=== PATIENT | female | born 1955 | race Caucasian/White ===

== ENCOUNTER 2021-08-15 16:27 | Emergency (ER) | payer MEDICARE ==
[~2021-08-15] VITALS: Ht 157.5 cm; Wt 86.2 kg
[~2021-08-15 16:27] MED LIST: ALPRAZOLAM ER1 MG PO; AMBIEN 10 MG TA10 MG PO; ASPIRIN EC81 M1 PO; BYSTOLIC10 MG PO; CARVEDILOL25 MG PO; CLONAZEPAM 0.50.5 M1 PO; DOXAZOSIN MESYLA2 MG PO; HYDROCODON-ACE1 EAC5 PO; HYDROCODON-ACE1 EAC8 PO; LEVOTHYROXINE0.05 MG PO; LISINOPRIL20 MG PO; UNITHROID50 MCG PO; XANAX 0.5 MG0.5 MG PO; XANAX XR1 MG PO; ZOLOFT 50 MG TA50 M1 PO; ZYRTEC10 M2 PO
[2021-08-15 18:31] LABS: ABSOLUTE NEUTROPHILS 4.5 thou/uL (1.4-8.2); BASOPHILS 0.9 % (0.0-2.0); EOSINOPHILS 1.5 % (0.0-3.0); HEMATOCRIT 39.5 % (37.0-47.0); HEMOGLOBIN 12.9 gm/dL (12.0-15.0); LYMPHOCYTES 35.1 % (24.0-44.0); MCH 30.5 pg (26.0-34.0); MCHC 32.5 g/dL (28.0-37.0); MCV 93.7 fL (80.0-100.0); MONOCYTES 5.6 % (1.0-8.0); PLATELET COUNT 174 thou/uL (150-400); POLYS 56.9 % (36.0-66.0); RBC 4.22 mil/uL (4.20-5.00); RDW 13.2 % (10.5-14.5); WBC 7.9 thou/uL (4.0-11.0)
[2021-08-15 18:53] LABS: ANION GAP 9 mmol/L (7-16); BUN 19 mg/dL (7-18); CHLORIDE 100 mmol/L (98-107); CO2 26 mmol/L (21-32); GLUCOSE 101 mg/dL (74-106); POTASSIUM 3.8 mmol/L (3.5-5.1); SODIUM 135 mmol/L (136-145)
[2021-08-15 18:55] LABS: URINE BILIRUBIN NEGATIVE (Negative); URINE BLOOD NEGATIVE (Negative); URINE CLARITY CLEAR; URINE COLOR YELLOW; URINE GLUCOSE-RANDOM* NEGATIVE (Negative); URINE KETONES NEGATIVE (Negative); URINE LEUKOCYTES-REFLEX TRACE (Negative); URINE NITRITE-REFLEX NEGATIVE (Negative); URINE PROTEIN (DIPSTICK) NEGATIVE (Negative); URINE SPECIFIC GRAVITY 1.025 (1.005-1.035); URINE UROBILINOGEN 0.2 E.U./dl (0.2-1.0)
[2021-08-15 18:58] LABS: ALBUMIN 3.3 g/dL (3.4-5.0); SALICYLATE < 2.8 mg/dL (2.8-20.0); SGOT 47 U/L (15-37); SGPT 55 U/L (14-59); TOTAL BILIRUBIN 0.9 mg/dL (0.2-1.0); TOTAL PROTEIN 7.4 g/dL (6.4-8.2)
[2021-08-15 19:10] LABS: AMP/METHAMP Negative (Negative); BARBITURATES Negative (Negative); BENZODIAZEPINES Negative (Negative); COCAINE Negative (Negative); METHADONE Negative (Negative); OPIATES Negative (Negative); PCP Negative (Negative)
[2021-08-16 00:28] VITALS: BP 154/89
--- NOTE | 2021-08-16 08:44 | EKG ---
[address] [address] ELECTROCARDIOGRAM REPORT Name: MIRYAM SOLIS [id number] Admission: 08/15/21 Attend Phys: Discharge: 08/16/21 Date of : 51 Report #: [id number] [facility] ED Test Date: 2021-08-15 Test Time: 18:07:09 Pat Name: MIRYAM SOLIS Department: Room: Gender: F Cooperer: BLOSSOM : 1955 Requested By: Charlee Peguero Order Number: [id number] MD: Roel Waldron Measurements Intervals [place] Rate: 75 P: 45 [place]: 163 QRS: -12 QRSD: 88 T: 31 QT: 421 QTc: 471 Interpretive Statements Sinus rhythm Probable left atrial enlargement Inferior infarct, old Baseline wander in lead(s) V2 Compared to ECG 10/09/2013 22:12:01 Myocardial infarct finding now present ST (T wave) deviation no longer present Electronically Signed On 08-16-2021 8:44:05 WIRE TWISTING MACHINE OPERATOR by Roel Waldron [email or web address] <ELECTRONICALLY SIGNED> By: Roel Waldron MD, [facility] 08/16/21 0844 1807 180 Roel Waldron MD, [facility] /EPI
[2021-08-16] MEDS ORDERED: LEVO-T75 MCG PO (14:37)
[2021-08-16] MEDS ORDERED: TRAMADOL 50 MG50 MG (15:10)
[2021-08-16] MEDS ORDERED: LOPRESSOR50 MG (15:10)
[2021-08-16] MEDS ORDERED: BAYER CHEWABLE81 MG (15:12)
[2021-08-16] MEDS ORDERED: ATORVASTATIN CA20 MG (15:12)
[2021-08-16] MEDS ORDERED: LISINOPRIL2.5 MG (15:13)
[2021-08-16] MEDS ORDERED: PLAVIX 75 MG TA75 MG (15:13)
[2021-08-16] MEDS ORDERED: NICOTINE PATCH1 EAC2 (15:14)
== END 2021-08-16 00:30 ==
LOC: ER 16:27
PROVIDERS: Nurse Practitioner Family; Student in an Organized Health Care Education/Training Program
DX: R41.82 Altered mental status, unspecified (principal); R60.0 Localized edema; I10 Essential (primary) hypertension; J44.9 Chronic obstructive pulmonary disease, unspecified; F41.9 Anxiety disorder, unspecified; F32.9 Major depressive disorder, single episode, unspecified; E03.9 Hypothyroidism, unspecified; F17.210 Nicotine dependence, cigarettes, uncomplicated; Z79.899 Other long term (current) drug therapy; Z98.890 Other specified postprocedural states; Z90.89 Acquired absence of other organs; Z91.040 Latex allergy status; Z88.0 Allergy status to penicillin; Z88.8 Allergy status to other drugs, medicaments and biological substances

== ENCOUNTER 2021-08-16 00:45 | Inpatient (IN) | payer MEDICARE, MEDICAID ==
--- NOTE | 2021-08-16 02:13 | NUR ---
PATIENT IS AMITTED TO THE UNIT TO ROOM 528A. SHE IS ALERT AND ORIENTED TO PLACE. VERBALLY ABUSSIVE AND RESISTANCE TO CARE. SHE DENIES PAINS/SI/AVH/HI. SHE IS CONTINENT OF BOWEL AND BLADDER. AMBULATES AND ABLE TO VERBALISE HER NEEDS. BED IS LOW, LOCKED AND ALARMED. BS ACTIVE AND SHE REFUSES TO ANSWER ASSESSMENT QUESTION. SHE SAID, "I WANT TO TALK TO MY DAUGHTER".SHE REFUES VITAL SIGN TO BE CHECKED AND TOOK OFF THE BP CUFF. SAT AT 97% AT RA. T 97.4, 18, 74. SHE GOT OUT OF HER ROOM AND WENT TO DAY AREA. VERY LOUD AND HYPER VERBAL. [id number] CHECK IS ONGOING.. CALL TO [facility] AND NO MED LIST AVAILABLE AT [facility] TIME SAY TO FOLLOW UP WITH DR MATA AT AM.ORDER FOR CONSULT IN WITH DR CRUZ AND NATALIE UP IN THE UNIT TO VISIT. PATIENT.
[2021-08-16 08:25] VITALS: BP 134/87
[2021-08-16 08:59] VITALS: BP 134/87
[2021-08-16 11:12] LABS: CHOLESTEROL 95 mg/dL (<200); HDL CHOLESTEROL 54 mg/dL (>40); LDL CHOLESTEROL 25 mg/dL (<100); TC:HDL 1.8 Ratio (Not establshd); TRIGLYCERIDE 84 mg/dL (<150); VLDL 17 mg/dL (<40)
[2021-08-16] MEDS ORDERED: LEVO-T75 MCG PO (14:37)
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
[2021-08-16] MEDS ORDERED: TRAMADOL 50 MG50 MG (15:10)
[2021-08-16] MEDS ORDERED: LOPRESSOR50 MG (15:10)
[2021-08-16] MEDS ORDERED: ATORVASTATIN CA20 MG (15:12)
[2021-08-16] MEDS ORDERED: BAYER CHEWABLE81 MG (15:12)
[2021-08-16] MEDS ORDERED: PLAVIX 75 MG TA75 MG (15:13)
[2021-08-16] MEDS ORDERED: LISINOPRIL2.5 MG (15:13)
[2021-08-16] MEDS ORDERED: NICOTINE PATCH1 EAC2 (15:14)
--- NOTE | 2021-08-16 15:58 | NUR ---
Assumed pt care this morning from overnight shift. Pt was in activity area with pleasant expression on her face eating breakfast. Pt presented alert and oriented x3, though did not seen to know year. Pt was having issues with the phone, so staff helped pt use the phone to call daughter and leave messages for daughter and then leave a message for her per pt request. Pt stated that she did not think that she should be in the hospital and that she was uncertain of taking medications in general. Pt education provided about medication administration and listening to providers at this time. It was explained to pt that she did not currently have any medications given that medication reconciliation was still occuring. Pt voiced understanding at this time. Pt denied any depression or anxiety when asked. Pt also denied any hallucinations. Pt denied suicidal or homcidal ideation as well. Pt denied pain at this time, though legs were shown to have +1-2 edema, which pt voiced she had never had prior. Lung sounds clear but diminished. Heart murmur present. Bowel sounds present and active. Last BM today per report. Medication list sent by daughter. Psych medications not entered per order of Dr. Banda as daughter was unsure of when her mother had taken these medications last. Medical medications entered for hospitalist view. Providers respectively aware of this and above information on client. No further concerns.
[2021-08-16 17:29] VITALS: BP 159/100
--- NOTE | 2021-08-16 21:45 | NUR ---
At onset of night custodian pt was sitting in the day room watching TV and reading magazines. Pt had her feet up in a chair to help with her bilateral lower leg pitting edema +1. This shift pt was alert and oriented x3. Pt stated that she was in the hospital because her wanted to get back together with her and he she had a stroke in December that was causing her to "speak a foreign language." Pt complained of depression and anxiety, but stated she will be okay. Pt stated she takes Xanax at home 1mg three times a day. RN called logistics operations director Ector Pepper and received an order for PRN xanax. Pt recieved 1mg at bed time. Pt denied SI, HI and AVH. Pt was compliant with vital signs and medications. Pt was pleasant with staff and peers. Pt is a low fall risk. Will continue to monitor.
[2021-08-17 02:06] LABS: GLYCOHEMOGLOBIN (HGB A1C) 4.9 % (4.8-5.6)
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
[2021-08-17 09:30] VITALS: BP 122/82
--- NOTE | 2021-08-17 11:29 | NUR ---
Alert and orientated X4. Denies SI/HI. Happy and joking this AM. States she has a headache /. Tylenol given, decreased to 7. No s/o distress, participating in group. Currently laying down in room. Breath sounds clear. Reg HR auscultated. Color pink with brisk capillary refill and palpable peripheral pulses. Incontinent of large amt yellow urine per brief. Active bowel sounds over soft, rounded abdomen. States last BM was yesterday. Ambulates with regular, steady gait.
--- NOTE | 2021-08-17 12:04 | NUR ---
New admit to [facility]. PMH COPD, marijuana and tobacco use, CAD s/p [place], Bipolar d/o, dementia. Pt with need for placement, family meeting secheduled. She is on a regular diet with low intakes at bkft and lunch noted but 100% intake at dinner last noc. BMI 36, class II obesity. 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 Meds and labs reviewed. Follow weight and intakes ternds, but consider low nutrition risk.
[2021-08-17 21:06] VITALS: BP 114/62
[2021-08-18 07:46] VITALS: BP 118/84
--- NOTE | 2021-08-18 11:22 | NUR ---
Alert and orientated X4. Calm, cooperative and compliant. Requesting med to help her sleep. Wants xanax to be reordered, states quetiapine is not working. Slept well per report. Denies SI/HI. Breath sounds clear. Reg HR auscultated. Color pink with brisk capillary refill and palpable peripheral pulses. Independent with voiding. Active bowel sounds over soft, rounded abdomen. Ambulates with regular steady gait. Interacting with peers and staff. Calm and cooperative all AM.
[2021-08-18 19:32] VITALS: BP 127/70
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
[2021-08-19 09:12] VITALS: BP 143/104
[2021-08-19 20:00] VITALS: BP 98/70
[2021-08-19 20:22] VITALS: BP 98/70
--- NOTE | 2021-08-19 23:25 | NUR ---
PATIENT HAS BEEN IN ROOM ALL NIGHT. SHE IS SLEEPING AT THIS TIME. SHE HAS WANTED TO BE LEFT ALONE TO SLEEP. PATIENT UP TO THE BATHROOM ON OWN. DENIES SI/HI/AVH. PATIENT A/0X2. DENIES PAIN. TOOK MEDS WHOLE WITH WATER. IRRITABLE WHEN AWAKENED. ROUTINE CHECKS TO ASSESS STATUS AND SAFETY OF PATIENT. CONTINUING TO MONITOR.
[2021-08-20 08:44] VITALS: BP 141/77
--- NOTE | 2021-08-20 12:55 | NUR ---
Assumed pt care this morning from overnight shift. Pt was in activity area resting during this time. Client presented alert and oriented 3x, and was anxious but cooperative at this time. Client took all medications at this time, and tolerated them well. Client denied depression, though did voice anxiety at this time. PRN seroquel given for anxiety after group. Client denied any hallucinations at this time. Client also denied any si/hi presently. Client denied pain at this time, stating that "even if I was in pain, tylenol wouldn't help me- I used to buy tons of it and it didn't help" without specifying any pain. Client lung sounds clear. Bowel sounds active. Last BM 08/19/21. No further concerns at this time.
--- NOTE | 2021-08-20 16:36 | NUR ---
Family meeting - IAIN Ortega and Dr. Bnada. Will explore facilities in [place], [place] for patient. Shannon's email address is
[2021-08-20 17:09] VITALS: BP 157/103
[2021-08-20 18:06] VITALS: BP 145/88
[2021-08-20 19:43] VITALS: BP 145/88
[2021-08-20 19:54] VITALS: BP 137/61
--- NOTE | 2021-08-20 20:48 | NUR ---
PATIENT WAS IN HER ROOM TALKING TO HER DAUGHTER ON THE PHONE AT 1900. SHE REQUESTED TO THIS NURSE AT THIS TIME THAT SHE HAD A HEADACHE AND THAT SHE NEEDED HER SEROQUEL WITH BEDTIME MEDS. AFTER SPEAKING TO HER DAUGHTER, SHE CAME OUT TO THE DINING ROOM FOR A SNACK AND TO WATCH TV. SHE CONTINUES TO VISIT IN THE DINING ROOM. SHE WAS GIVEN ES TYLENOL 1000MG PO WITH HS MEDS WELL PRN SEROQUEL. SHE IS OUT OF HER ROOM MORE TONIGHT THAN LAST NIGHT. SHE DENIES SI/HI/AVH. SHE HAS BEEN CALM AND COOPERATIVE BUT GETS ANXIOUS OCCASIONALLY. PATIENT WALKS WITH STEADY GAIT. A/0X4 TONIGHT. IN GOOD SPIRITS AND SAYS HER DAUGHTER MISSES HER. THIS MADE HER FEEL GOOD. ROUTINE ROUNDS TO ASSESS SAFETY AND STATUS OF PATIENT. CONTINUING TO MONITOR.
[2021-08-21 07:46] VITALS: BP 156/99
--- NOTE | 2021-08-21 11:45 | NUR ---
Alert and orientated X3. Calm, cooperative and compliant. Denies SI/HI. Requesting seroquel for anxiety, provided. Ambulates with regular, steady gait. Breath sounds clear. Reg HR auscultated. Color pink with brisk capillary refill and palpable peripheral pulses. Incontinent of large amt yellow urine, saturated bed. Active bowel sounds over soft, rounded abdomen. States she had BM yesterday.
[2021-08-21 16:56] VITALS: BP 153/88
[2021-08-21 19:35] VITALS: BP 138/87
[2021-08-21 20:11] VITALS: BP 138/87
--- NOTE | 2021-08-22 01:44 | NUR ---
Assumed care on 08/21/21 @ 1900, retired to bed early, reports feels okay, just bored and nothing to do but sleep. Cooperated with assessment HRRR, Breath sounds CTA bilat, ABD Nx4Q. Reports BM on 08/20. when provided medicaitons, belched and coughed and coughed up a small amount of fluid @ 20:30. Zofran 4mg provided for nausea @ 20:50, nausea resolved on follow up assessment.
[2021-08-22 09:51] VITALS: BP 128/76
--- NOTE | 2021-08-22 10:55 | NUR ---
PATIENT HAS BEEN UP, AND OUT ON THE UNIT, AMBULATE WITH SLOW STEADY GAIT. PATIENT TOOK ALL MORNING MEDICATION WHOLE WITHOUT DIFFICULTY, SHE IS EATING MEALS, AND DRINKING FLUID WELL. PATIENT DENIES SUICIDAL/HOMICIDAL IDEATION, SHE STATES BOTH DEPRESSION/ANXIETY ARE HIGH. PATIENT CHOOSE NOT TO PARTICIPATE IN MORNING GROUP, "I JUST WANT TO REST". AFFECT IS APPROPRIATE, MOOD IS CALM/EUTHYMIC. LCTA, RESP EVEN/UNLABORED, NO SOA/CYANOSIS NOTED. BS+X4, ABD SOFT, NON-TENDER TO TOUCH. NO SIGN OF ACUTE DISTRESS NOTED AT THIS TIME, WILL CONTINUE TO ENCOURAGE PARTICIPATING IN ALL GROUPS, AND MONITOR FOR SAFETY.
[2021-08-22 19:30] VITALS: BP 120/75
--- NOTE | 2021-08-23 00:29 | NUR ---
At onset of overnight caregiver pt was sitting in chair in day room watching TV. Pt was carrying around a blanket from home. This shift pt was alert and appeared euthymic, calm, and pleasant. Pt was observed socializing with peers. Pt put herself to bed. RN entered pt's room to pass pt her medication, pt was asleep. RN called pt's name several times. Pt did stir when RN touched pt's shoulder, but pt quickly fell back asleep. Pt would not stir when RN touched her shoulder again. RN decided to hold pt's one HS medication, doxazosin; pt's blood pressure was 120/75 and pt was sleeping. Unable to assess SI, HI, AVH, and orientation with pt due to pt sleeping. Pt is low fall risk. Will continue to monitor.
[2021-08-23 08:40] VITALS: BP 103/79
[2021-08-23 09:03] VITALS: BP 103/79
--- NOTE | 2021-08-23 10:35 | NUR ---
08/22/2021 - IAIN met with Saira. Saira inquired about placement. She expressed wanting to have a one bedroom apartment. 08/22/2021 - Phone call to Shannon LOTT ([phone]), regarding any placements that she would like a referral sent. The SW left a voice message. Shannon did call back. She provided the names of multiple places including [facility], [facility], [facility] and [facility]. Shannon later called back and stated she wanted a referral sent to [facility] ([phone]). She indicated in her message that [facility] was her first choice of placement and that there is currently openings. 08/22/2021 - Phone call received from [facility]. Staff indicated they have spoken to Shannon. They are aware that the patient has [place] Medicaid. They currently have openings. 08/22/2021 - Referral sent to [facility] in [place], [place].
--- NOTE | 2021-08-23 12:05 | NUR ---
Referrals faxed to: - [facility] - [facility] - Adin [facility] - [facility]
--- NOTE | 2021-08-23 12:14 | NUR ---
Adin magdaleno [facility] - Not able to meet the patient's needs
--- NOTE | 2021-08-23 12:19 | NUR ---
[facility] - Not able to accept patient
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
--- NOTE | 2021-08-23 14:10 | NUR ---
Assumed pt care this am from overnight shift. Pt presented alert and oriented 4x at this time, and was pleasant and cooperative when staff approached. Pt took all medications whole, and well tolerated. Pt expressed mild depression and anxiety as she had not yet found a placement to go to from here. Pt was assured that family welfare social work professor and treatment team were working to help get her into facility at this time. Pt expressed thanks. Pt denied any hallucinations. Pt also denied si/hi. Pt stated headache, but had already had acetaminophen an hour prior, so lidocaine patch was placed slightly higher on back to help with neck pain and headache. Pt lung sounds clear. Pt bowel sounds active. Pt last BM 08/22/21. No further concerns at this time.
--- NOTE | 2021-08-23 15:40 | NUR ---
Referrals faxed to: - [facility]
--- NOTE | 2021-08-23 15:41 | NUR ---
Email sent to KAYLIE letting her know that placement was denied by [facility], [facility] and [facility].
--- NOTE | 2021-08-23 15:48 | NUR ---
Welcome Email sent to
[2021-08-23 19:00] VITALS: BP 112/61
[2021-08-23 19:43] VITALS: BP 112/61
--- NOTE | 2021-08-23 23:39 | NUR ---
ABDULLAHI CARE WAS RESUMED AT 1900. SHE WAS IN HER ROOM SLEEPING. SHE WAS AWOKEN BY THIS NURSE FOR ASSESSMENT AND SHE SHE TOOK HER MEDS. SNACKS WAS ALSO PROVIDED. SHE DENIES PAINS/SI/AVH/HI. LUNGS ARE CLEAR BS ACTIVE X4 QUAD. SHE IS CONTINENT OF BOWEL AND BLADDER. CONTINUE CARE
[2021-08-24 10:05] VITALS: BP 151/79
--- NOTE | 2021-08-24 11:25 | NUR ---
Alert and orientated X4. Denies SI/HI. Breath sounds clear. Reg HR auscultated. Color pink with brisk capillary refill and palpable peripheral pulses. No edema noted. Incontinent of large amt yellow urine. Active bowel sounds over soft, rounded abdomen. States she had BM yesterday. Ambulates with regular, steady gait.
--- NOTE | 2021-08-24 11:34 | NUR ---
Nutrition followup: Pt continues on [facility] unit, dx dementia. Eating 100% of most meals on regular diet and has requested Ensure TID which she is also drinking. Stable weights. Low risk.
[2021-08-24 16:22] VITALS: BP 140/67
--- NOTE | 2021-08-24 16:25 | NUR ---
Phone call received from [facility]. Interested in placement of the patient. Facility needs a Covid test, confirmation from Medicaid of approval and would like to speak to the patient via zoom. In addition, staff made aware that they currently have a Covid-19 positive patient in the facility that is being quarantined. Email sent to Shannon letting her know the steps that need to be taken for placement. Phone call to [facility] insurance adjustor for the patient - Voice message Zoom meeting with patient and facility. Patient was able to see the facility. Family meeting with Shannon. Present for the family meeting were the IAIN and Shannon. Shannon reports that the patient had contacted her and let her know about the place. Shannon feels [facility] will be a good fit. Shannon and IAIN discussed next steps.
[2021-08-24 19:02] VITALS: BP 140/91
--- NOTE | 2021-08-24 21:58 | NUR ---
At onset of film processing shift supervisor pt was resting in bed asleep. This shift pt was alert and oriented x4. Pt was calm, pleasant and cooperative. Affect was broad. Speech was slightly tangential and at times slurred, but mostly clear. Pt was compliant with medication and vital signs. Pt requested tylenol for a headache. Pt initially stated she would like xanax, but RN explained to pt she did not have any xanax ordered. Pt denied SI, HI and AVH. Pt stated she is feeling a little anxious about moving to a new place. Pt stated she feels okay about the move and is happy it is in [place]. Pt talked about her daughter making these plans for her and sometimes the pt disagrees with the daughter. Pt also talked about how her daughter does not want the pt to with a man right now. Pt is low fall risk. Will continue to monitor.
--- NOTE | 2021-08-25 10:13 | NUR ---
Alert and orientated X4. Calm, cooperative and compliant. States she didn't sleep that well last night. Denies SI/HI. Breath sounds clear. Reg HR auscultated. Color pink with brisk capillary refill and palpable peripheral pulses. Incontinent of yellow urine per brief this AM. Active bowel sounds over soft, rounded abdomen. States she had BM last night. Ambulates with regular steady gait. Currently in dining room eating snack. No s/o distress. Did not attend group.
[2021-08-25 11:05] VITALS: BP 155/109
[2021-08-25 16:30] VITALS: BP 149/86
[2021-08-25 18:42] LABS: URINE BILIRUBIN NEGATIVE (Negative); URINE BLOOD NEGATIVE (Negative); URINE CLARITY CLEAR; URINE COLOR YELLOW; URINE GLUCOSE-RANDOM* NEGATIVE (Negative); URINE KETONES NEGATIVE (Negative); URINE LEUKOCYTES-REFLEX NEGATIVE (Negative); URINE NITRITE-REFLEX NEGATIVE (Negative); URINE PROTEIN (DIPSTICK) NEGATIVE (Negative); URINE SPECIFIC GRAVITY <= 1.005 (1.005-1.035); URINE UROBILINOGEN 0.2 E.U./dl (0.2-1.0)
[2021-08-25 19:03] VITALS: BP 141/84
--- NOTE | 2021-08-25 22:18 | NUR ---
At onset of extrusion die repairer pt was sleeping in bed. This shift pt was very drowsy. Pt received benadryl and seroquel in the afternoon. Pt was difficult to wake for med pass, but pt was able to follow directions and stated her name and that she was at [facility]. Pt did take her HS medication and then went back to sleep. Unable to assess SI, HI, and AVH due to pt's drowsiness. Pt is low fall risk, however due to pt's drowsiness RN turned on bed alarm during the night. Will continue to monitor.
[2021-08-26 08:15] VITALS: BP 151/91
[2021-08-26 09:14] VITALS: BP 151/91
--- NOTE | 2021-08-26 11:49 | NUR ---
Assumed pt care this morning from overnight shift. Pt presented alert and oriented 4x at this time. Pt was calm and cooperative, though presented with flight of ideas and tangential thoughts at this time. Pt endorsed some depression and anxiety as she was nervous about waiting for her housing tomorrow potentially, but stated that she was also excited about the prospect. Client denied any hallucinations at this time. Client denied si/hi. Client stated slight head and back pain and was given prn tylenol. Client lung sounds clear. Bowel sounds active. Last BM 08/26/21. No other concerns at this time.
[2021-08-26 19:34] VITALS: BP 119/61
[2021-08-26 19:35] VITALS: BP 119/61
--- NOTE | 2021-08-26 20:01 | NUR ---
Assumed care on 08/26/20 @ 1900, seated on a couch in front of the TV watching football and coloring on adult coloring sheets. Cooperated with assessment, acknowledges pain in lower back and headach, denies si and hi, reports anxiety and depression are significant. Will continue to observe for safety and comfort as per unit protocol.
[2021-08-27 09:01] VITALS: BP 150/80
[2021-08-27 09:28] VITALS: BP 150/80
--- NOTE | 2021-08-27 09:34 | NUR ---
Phone call from patient's [employer] case fitter ([phone]). SW explained that the facility is requesting approval from Medicaid. [employer] case fitter explained that this approval would need to come from the straight Medicaid Service Technician. Phone call to Елена ([phone]), admissions for [facility] regarding Medicaid approval. Voice message. Phone call to Mary ([phone]) at [facility] - No answer.
--- NOTE | 2021-08-27 10:59 | NUR ---
RESUMMED CARE FROM OVERNIGHT SHIFT THIS AM, PATIENT IN DAY ROOM TALKING WITH STAFF. PATIENT ATE BREAKFAST TOOK MEDICATION WITHOUT INDICENCE. PATIENT ALERT ORIENTED TIMES 4 PATIENT DENIES SI/HI/AH/VH AT PRESENT. PATIENTS ABDOMEN SOFT BOWEL SOUNDS PRESENT PATIENTS LUNGS CLEAR. PATIENT PARTICPATES IN GROUP AND IS ANXIOUS ABOUT LEAVING. PATIENT DENIES DEPRESSION PATIENT HAS NOT DISPLAYED ANY BEHAVIORS. WILL CONTINUE TO MONITOR PATIENT FOR SAFETY AND BEHAVIORS.
--- NOTE | 2021-08-27 19:20 | NUR ---
Assumed care on 08/27/21 @ 1900, in her room, lying in bed eyes closed, answers to voice and cooperates with assessment, HRRR, Lungs CTA, ABD N x4Q. C/O lower back pain and headache. Denies SI and HI, rates Anxiety and depression at 10/10. Will continue to monitor for comfort and safety as per unit protcol.
[2021-08-27 19:35] VITALS: BP 132/63
[2021-08-27 19:53] VITALS: BP 132/63
[2021-08-28 09:04] VITALS: BP 144/76
--- NOTE | 2021-08-28 10:40 | NUR ---
PATIENT CARE ASSUMED AT 0700 - PLEASANT AND AGREEABLE. PATIENT STATES SLEPT WELL. STILL HAS DISCOMFORT WITH LOWER BACK. DENIES S/I OR H/I - RATED DEPRESSION AND ANXIETY LOW 10/11 - AMBULATES STEADILY. APPEARS PLEASED ABOUT DISCHARGING WEEK. HEART RATE STRONG AND STEADY - LUNGS CLEAR ON AUSCULATION AND BOWEL SOUNDS ACTIVE IN ALL FOUR QUADRANTS. SKIN INTACT - WARM AND DRY. PATIENT COMPLIANT WITH MEDICATIONS AND GOOD APPETITE WITH COMPLETION OF OVER 75 PERCENT OF HER BREAKFAST. WILL CONTINUE TO MONTIOR PATIENT FOR SAFETY AND TO ADDRESS ANY CONCERNS ACCORDINGLY.
--- NOTE | 2021-08-28 16:47 | NUR ---
Phone call to [facility] regarding admission for the patient - Voice message
[2021-08-28 19:13] VITALS: BP 141/111
[2021-08-28 19:30] VITALS: BP 141/111
--- NOTE | 2021-08-28 22:01 | NUR ---
Assumed care on 08/28/21 @ 1900, amabulates with a walker and is a low fall risk, ambulating with a steady gait. Daughter Shannon called and patient spoke for quite a while. Cooperated with assessment, HRRR, Lung sounds CTA bilat, ABD N x 4Q, reports BM x 2 today on 08/28. Tylenol 1000mg given for back pain of 6/10 and on follow up rates pain as 4/10. Asks for sleep meds and seroquel for anxiety. No sleep medication is ordered, and no PRN seroquel is available. A&Ox4. Will continue to monitor for safety and comfort as per unit protocol.
[2021-08-29 07:30] VITALS: BP 153/96
--- NOTE | 2021-08-29 11:28 | NUR ---
Phone call to Елена regarding placement at [facility] for the patient.
--- NOTE | 2021-08-29 14:28 | NUR ---
PATIENT HAS BEEN UP, AND OUT ON THE UNIT, AMBULATE WITH ASSIST OF ROLLER WALKER, GAIT SLOW, AND SLIGHTLY UNSTEADY. PATIENT TOOK ALL MEDICATION WHOLE THIS MORNING WITHOUT DIFFICULTY, SHE IS EATING MEALS, AND DRINKING FLUID WELL. PATIENT DENIES SUICIDAL/HOMICIDAL IDEATION, SHE RATES BOTH DEPRESSION/ANXIETY 10/10, RATES BACK PAIN AND HEADACHE 10/10, PRN TYLENOL GIVEN, ALSO GETS SCHEDULE PAIN PATCH, BUT CONSTANTLY REQUESTING FOR MEDICATIONS. NO AGITATION OR IRRITABLE BEHAVIOR NOTED, AFFECT IS FLAT/BLUNTED, MOOD IS DEPRESSED/EUTHYMIC. PATIENT PARTICIPATES IN GROUP THERAPY, NO SIGN OF ACUTE DISTRESS NOTED AT THIS TIME, WILL MONITOR FOR SAFETY.
[2021-08-29 18:46] VITALS: BP 147/108
[2021-08-29 20:00] VITALS: BP 136/86
--- NOTE | 2021-08-29 23:51 | NUR ---
PATIENT HAS BEEN IN BED ALL EVENING. AT ONE POINT SHE URINATED ALL OVER HERSELF IN BED AND REQUESTED A NEW BRIEF AND CLOTHES WHEN AWAKENED TO TAKE HER HS MEDS. NO COMPLAINTS OF PAIN TONIGHT. NO INDICATION OF SI/HI/AVH. PATIENT RESTING IN BED WITH EYES CLOSED. TOOK HER MEDS WHOLE WITH WATER. BED IN LOW POSITION. ROUTINE ROUNDS TO ASSESS SAFETY AND STATUS OF PATIENT.
[2021-08-30 07:15] VITALS: BP 111/82
--- NOTE | 2021-08-30 10:19 | NUR ---
Alert and orientated X4. Calm and cooperative. Denies SI/HI. Ambulating around unit with walker without s/o distress. Breath sounds clear. Reg HR auscultated. Color pink with brisk capillary refill and palpable peripheral pulses. Brief dry. Active bowel sounds over soft, rounded abdomen. States she had BM yesterday. Currently in day room with peers. No s/o distress.
--- NOTE | 2021-08-30 16:04 | NUR ---
Meeting with patient. Patient inquired if the SW had heard anything regarding placement. The patient let her know that no additional information regarding placement had been received.
[2021-08-30 17:10] VITALS: BP 153/107
[2021-08-30 19:49] VITALS: BP 147/82
--- NOTE | 2021-08-31 05:23 | NUR ---
Assumed care of pt at 1900. Pt calm et cooperative this shift. Took medications whole without difficulty. Ambulates the halls ad cassandra with assistance of walker with steady gait. Watched TV in dayroom with peers at beginning of shift. VSWNL. Health assessment with no abnormalities noted at present time. Denies SI/HI at present time. Currently resting in bed with eyes closed. Will continue to monitor per unit protocol.
--- NOTE | 2021-08-31 11:44 | NUR ---
Nutrition followup: pt continues to eat 75-100% of meals and supplements on regular diet. Had requested ensure TID. Weight up 5# in 2 weeks. Attempted to D/C ensure with pt as no longer needed but she really wants to continue. States it helps her go to the bathroom and she prefers this over a stool softener. Was able to get pt to agree to dropping ensure to BID for now. 08/30 BM. Plan D/C soon. Low nutrition risk.
--- NOTE | 2021-08-31 12:19 | NUR ---
Alert and orientated X4. States she has a CRUZ 10/10 with minimal relief from [address] Banda notified. Benadryl given per order. Denies SI/HI. Concerned about discharge placement out of hospital. Breath sounds clear. Reg HR auscultated. Color pink with brisk capillary refill and palpable peripheral pulses. Brief dry. Active bowel sounds over soft rounded abdomen. Ambulates with regular, steady gait.
--- NOTE | 2021-08-31 15:00 | NUR ---
Referrals faxed to: - [facility] - [facility] - [facility] - [facility]
[2021-08-31 19:25] VITALS: BP 127/80
--- NOTE | 2021-09-01 05:39 | NUR ---
Assumed care of pt at 1900. Pt calm et cooperative this shift. Took medications whole without difficulty. Ambulates the halls ad cassandra with assistance of walker with steady gait. Socialized with peers in dayroom at beginning of shift. VSWNL. Health assessment with no abnormalities noted at present time. Denies SI/HI at present time. Currently resting in bed with eyes closed. Will continue to monitor per unit protocol.
--- NOTE | 2021-09-01 09:33 | NUR ---
HAS BEEN CALM AND COOPERATIVE SO FAR THIS AM-ATTENDING SCHEDULED GROUPS. DOES OFFER SOME SOMATIC COMPLAINTS DURING AM 1;1 INTERACTION WITH NURSING STAFF BUT IS ABLE TO BE REDIRECTED TOWARD AM ACTIVITIES AND OTHER DISTRACTIONS ON UNIT. CONVERSATION CIRCUMSTANTIAL AT TIMES-SPEECH SLIGHTLY PRESSURED. REPORTS POOR SLEEP LAST PM DESPITE BEING DOCUMENTED HAVING 7.2 HOURS-STATES SHE WAKES UP MULTIPLE TIMES DURING NIGHT AND HAS DIFFICULTY RETURNING TO SLEEP.
[2021-09-01 09:40] VITALS: BP 155/88
[2021-09-01 20:23] VITALS: BP 124/79
[2021-09-02 09:35] VITALS: BP 163/101
[2021-09-02 11:11] VITALS: BP 143/77
--- NOTE | 2021-09-02 13:19 | NUR ---
Assumed pt care this morning from overnight shift. Pt presented pleasant and calm at this time, and was oriented 4x. Pt stated slight depression and anxiety from not knowing her upcoming move date, especially as she had not yet heard from [place]. Pt stated that she was trying to stay optimistic about this move. Client denied any si/hi. Client denied hallucinations. Client stated mild back pain at this time, which was helped by pain patch. Client lung sounds clear. Bowel sounds active. Last BM 09/01/21. BP retake at 11am was 143/77 as client had elevated bp in morning. No other concerns at this time.
[2021-09-02 19:45] VITALS: BP 125/59
[2021-09-02 19:57] VITALS: BP 125/59
--- NOTE | 2021-09-02 23:57 | NUR ---
Patient care was esued at 1900. she is alert and oriented. Moderate assist with care. she was in room resting. Lungs are clear bs active x4 quad, she is continent of bowel and bladder, she took her meds whole. Ambulates and she denies pains/SI/AVH/HI. She is able to verbalize her care.Bed is low, locked and alarmed. she is sleeping very calm . Q12 minutes checks are ongoing. continue care
--- NOTE | 2021-09-03 09:06 | NUR ---
Phone call to [facility]. Attempted to get the name of the [employer] Pump Installer. Was informed that this information could not be provided to me without a release. The SW got the patient to provide authorization. The patient remained in for the remainder of the discussion. Ammy stated that the name and number of the piano case maker could not be provided. The SW was eventually transferred to Dara health services information specialist. Dara reported that the patient is approved and the approvals should go out via mail today. The SW asked for the approval to be faxed to the SW so that the patient could be placed. Dara reported that the information could not be faxed or emailed, it can only go out via mail. Dara did state that Rashmi, who completed the assessment on the patient, would receive an email with the approval. The SW asked for the health services information specialist's hatchery supervisor name and number. Dara reported that neither could be provided. The SW requested that the health services information specialist call back once the approval is entered. IAIN also requested a return call from the hatchery supervisor.
[2021-09-03 09:35] VITALS: BP 149/73
--- NOTE | 2021-09-03 10:22 | NUR ---
COOPERATIVE AND PLEASANT THIS AM-ATTENDING SCHEDULED GROUPS. BECOMES IRRITATED WITH A FEMALE PEER ON UNIT WHO IS RESISITVE WITH STAFF AND UNIT COVID REGULATIONS. FULL RANGE AFFECT. ORIENTED X3-STATES IS AWAITING DC BUT ISN'T SURE WHY SHE IS STILL HERE. STRUCTURES FREE TIME READING BOOK IN DAYROOM
[2021-09-03 20:12] VITALS: BP 130/53
[2021-09-03 20:30] VITALS: BP 130/53
--- NOTE | 2021-09-03 23:20 | NUR ---
PATIENT HAS BEEN IN HER ROOM SINCE ASSUMED CARE OF PATIENT AT 1900. SHE WAS C/0 HEADACHE AT HS AND ES TYLENOL 1000MG PO GIVEN WITH HS MEDS. PATIENT HAS BEEN RESTING WITH EYES CLOSED SINCE THEN. PATIENT DENIES SI/HI/AVH. SHE HAS BEEN APPROPRIATE AND CALM. PATIENT IS UP WITH A STEADY GAIT. BED IS IN LOW POSITION. PATIENT A/0X3-4. NO OTHER COMPLAINTS. ROUTINE ROUNDS TO ASSESS SAFETY AND STATUS OF PATIENT . CONTINUING TO MONITOR.
[2021-09-04 08:32] VITALS: BP 150/62
[2021-09-04 09:12] VITALS: BP 150/62
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
[2021-09-04 10:13] LABS: CALCIUM 8.5 mg/dL (8.5-10.1); CREATININE 0.9 mg/dL (0.6-1.0); POTASSIUM 3.9 mmol/L (3.5-5.1)
[2021-09-04] MEDS ORDERED: CLOPIDOGREL75 MG PO (11:23)
[2021-09-04] MEDS ORDERED: LIPITOR 20 MG T20 M1 PO (11:24)
[2021-09-04] MEDS ORDERED: CARDURA4 MG PO (11:25)
[2021-09-04] MEDS ORDERED: CARVEDILOL25 MG PO (11:25)
[2021-09-04] MEDS ORDERED: SEROQUEL 50 MG50 MG PO (11:26)
[2021-09-04] MEDS ORDERED: TIROSINT75 MCG PO (11:27)
[2021-09-04] MEDS ORDERED: CHLORTHALIDONE25 MG PO (11:27)
[2021-09-04] MEDS ORDERED: NICOTINE PATCH1 EAC2 TRANSDERM (11:28)
[2021-09-04 11:36] VITALS: BP 150/62
--- NOTE | 2021-09-04 15:02 | NUR ---
Saira was alert and oriented x4 this shift. She presents as calm, cooperative, and appropriate. She was medication and meal compliant, taking pills whole without difficulty. Per SW pt's daughter called this morning expressing wishes for pt to be discharged today. Arrangements were made for pt to D/C to daughter at 1430 today. Pt was showered with x1 staff assistance. She was changed and all belongings gathered. VM was left for pt's daughter/DPOA to review discharge summary and no call back returned. Per pt's daughter called and stated she would not be picking pt up at this time but did not give an updated time, and is currently not answering her phone. Pt was provided back her blanket and book per pt request, and pt handed back her scarf and jacket. Pt remains stable at this time; will continue to monitor.
[2021-09-04 18:45] VITALS: BP 159/98
--- NOTE | 2021-09-04 22:59 | NUR ---
Assumed care on 09/04/21 @ 1900, retired to bed early in the evening, A&Ox4, Ambulates with a walker and is a low fall risk. HRRR, Lungs CTA bilat, ABD Nx4Q, BM yesterday on 09/04/21. Took medication and cooperated with assessment. Voiced anxiety and depression secondary to not leaving facility as she hoped/planned for. Denies SI/HI and hallucinations. Will continue to monitor for comfort and safety as per unit protocol.
[2021-09-05 09:23] VITALS: BP 160/86
--- NOTE | 2021-09-05 13:32 | NUR ---
PATIENT HAS BEEN UP, AND OUT ON THE UNIT, PARTICIPATES IN GROUP THERAPY. PATIENT TOOK ALL MEDICATION WHOLE WITHOUT DIFFICULTY, SHE IS EATING MELS, AND DRINKING FLUID WELL. PATIENT DENIES SUICIDAL/HOMICIDAL IDEATION, STATES DEPRESSION/ANXIETY IS ON TOP OF THE ROOF. SHE RATES HEADACHE, AND BACK PAIN 10/10, PRN TYLENOL GIVEN FOR HEADACHE, PAIN PATCH APPLIED TO BACK, WITH POSITIVE EFFECT. AFFECT IS SAD/BLUNTED, MOOD IS FRUSTRATED/DEPRESSED. NO SIGN OF ACUTE DISTRESS NOTED AT THIS TIME, WILL MONITOR FOR SFETY.
[2021-09-05 19:32] VITALS: BP 134/87
--- NOTE | 2021-09-06 00:44 | NUR ---
PATIENT WAS SITTING IN THE COMMON AREA WATCHING TV AT BEGINNING OF SHIFT. SHE IS AAOX3 AND FOLLOWING ALL COMMANDS. SHE IS CALM AND COOPERATIVE. SHE DID BIGIN RAMBLING REGARDING DISABILITY AND INSURANCE ISSUES THAT SHE HAS BEEN HAVING. STATES THAT SHE HAS SOMEBODY THAT IS SUPPOSED TO BE HELPING WITH THAT. STATES THAT SHE FEELS GOOD AT THIS TIME AND HAD A GOOD DAY. DENIES PAIN OR NEEDS. WILL CONTINUE TO MONITOR FOR CHANGES IN STATUS.
[2021-09-06 09:44] VITALS: BP 149/87
[2021-09-06 10:32] VITALS: BP 149/87
--- NOTE | 2021-09-06 11:35 | NUR ---
RESUMMED CARE @0700; PATIENT LOCATED IN HER ROOM RESTING COMFORTABLY; NO ACUTE S/O DISTRESS NOTED; A&O*4 - FORGETFUL; PATIENT DENIEDS SI/HI/AVH; DENIES SOB-CP; VERBALIZES GENERALIZED PAIN 02/10 - MEDICATIONS GIVEN PER OCT - LIDOCAINE PATCH PLACED ON MID-LOWER BACK; PATIENT VOICED BEING UPSET WITH NOT BEING ABLE TO GO HOME YESTERDAY, AND THAT SHE JUST WANTS TO BE ABLE TO LEAVE. PATIENT STATES SHE IS HAVING SOME ANXIETY AND DEPRESSION, STATING "JUST EVERYTHING" WHEN ASKED WHY SHES HAVING THESE FEELINGS. AMBULATES WITH A WALKER - GAIT IS STEADY; LOW-FALL RISK PRECAUTIONS IN PLACE; WILL CONTINUE TO MONITIOR PER [facility] PROTOCOL;
[2021-09-06 16:54] VITALS: BP 144/85
--- NOTE | 2021-09-06 17:08 | NUR ---
Message received from [employer] on 09/05/2021 at 5:18pm.
--- NOTE | 2021-09-06 17:13 | NUR ---
Phone call to Shannon. Voice mailbox full.
[2021-09-06 19:21] VITALS: BP 122/86
--- NOTE | 2021-09-06 20:12 | NUR ---
Primary nursing care done by Berhane Batres LPN Assessment done mid afternoon by this staff writer. Alert and orientated X4. Calm and cooperative, denies SI/HI. Concerned about discharge. Breath sounds clear. Reg HR auscultated. Color pink with brisk capillary refill and palpable peripheral pulses. Brief dry. Active bowel sounds over large, soft, rounded abdomen. Small amt erythema and excoriation in inguinal area, Berhane Batres LPN aware and addressing. Ambulates with regular, steady gait with walker. Being assisted with shower by Saira community health nurse.
--- NOTE | 2021-09-07 05:34 | NUR ---
Assumed care of pt at 1900. Pt calm et cooperative this shift. Took medications whole without difficulty. Ambulates the halls ad cassandra with steady gait. VSWNL. Health assessment with no abnormalities noted at present time. Denies SI/HI at present time. Isolated in room most of shift. Currently resting in bed with eyes closed. Will continue to monitor per unit protocol.
--- NOTE | 2021-09-07 08:55 | NUR ---
Followup: eating 75-100% of meals, wts are stable. Remains low nutrition risk
--- NOTE | 2021-09-07 09:36 | NUR ---
09/06/2021 - Received voice message from [facility] ([phone])
--- NOTE | 2021-09-07 09:38 | NUR ---
Phone call to [facility] for complex case manager. SW had to have patient enter room to give approval, which she did. Patient remained in room for meeting. SW and patient informed patient has a complex case manager, Marielena. Attendant provided complex case manager with email and phone number for SW along with note needing approval for placement in facility.
[2021-09-07 10:05] VITALS: BP 129/73
[2021-09-07 10:40] VITALS: BP 129/73
[2021-09-07 11:13] VITALS: BP 129/73; BP 150/62
--- NOTE | 2021-09-07 11:35 | NUR ---
Call received from Bianca Rutherford from the Aging and Disability resources office. Bianca reported that she had received multiple calls from patient daughter/DPOA. Bianca reported that the office had been closed for 2 days and they are working to collect approval for jail placement as quick as possible. It was explained that patient has reached maximum potential for the senior behavioral health program and it is being more detrimental for patient to remain hospitalized. Explained that transportation is being set up for 2pm today, 09/07/21, to transport patient to her and her daughters home. Once paperwork is in place, daughter can then take patient to the jail for admission.
--- NOTE | 2021-09-07 11:37 | NUR ---
RESUMMED CARE @0700; PATIENT LOCATED IN THE DIN[place]ING [place]OLTON ALONG SIDE HER PEERS, SEATED IN CHAIR RESTING COMFORTABLY; NO ACUTE S/O DISTRESS NOTED; A&O*4 - FORGETFUL; PRESENTS [id number]-FLAT AFFECT; DENIES SI/HI/AVH; DENIES SOB-CP; COMPLAINTS OF GENERALIZED PAIN 02/10- DENIED WANTING ANY MEDICATION FOR PAIN MANAGEMENT; PATIENT STATES SHE IS HAVING SOME ANXIETY, DEPRESSION-VERBALIZES ITS DUE TO WANTING TO GO HOME. "THIS PLACE JUST DRAGS YOU DOWN AFTER AWHILE." VSS ON ROOMAIR; AMBULATES WITH A WALKER - GAIT VISUALIZED STEADY; FALL PRECAUTIONS IN PLACE; WILL CONTINUE TO MONITIOR PER THE [facility];
[2021-09-07 13:25] VITALS: BP 129/73
--- NOTE | 2021-09-07 13:55 | NUR ---
Call received from Shannon, patients daughter and DPOA. Shannon is stating that she has 2 small children in her home and can't care for her mother. Treatment team discussed that patient has reached maximum potential for the senior behavioral health program. Shannon was notified that patient was being picked up at 2pm by [facility] and taken to her home. Shannon made several complaints that the social human services assistants never called patients insurance service representative to assist in placing patient. Notes reviewed and Shannon was given exact dates of all the calls social human services assistants made, who she spoke with and the status of calling patients insurance. Shannon states that she called insurance companies and there is no record of ever speaking with [facility]. It was explained that patient is becoming more depressed and isolated due to being admitted and not being at home. It was explained that Shannon is the DPOA of her mother and caring for her mother was her responsibility. Shannon reported that she will be calling her policy intern and the media if we discharged her mother today. Explained that a facility has accepted her and she is still able to take her to that facility once things clear with insurance. Shannon then demanded that she speak with the vulcanized fiber unit operator, which is myself. She then asked to speak with the staff over the vulcanized fiber unit operator. Shannon was given the information for the CNO and GRADUATE ADVISOR of [facility]. Shannon then asked to be transferred to GRADUATE ADVISOR which was completed. Prior to transferring call, the nurse reassured Shannon that patient was discharging at 2pm and being picked up by [facility].
--- NOTE | 2021-09-07 14:05 | NUR ---
Phone call to patient's PCP. Scheduled appointment for 09/12/2021 at 10:45a.m.
--- NOTE | 2021-09-08 09:40 | D ---
[facility] [place] [address] DISCHARGE SUMMARY Name: MIRYAM SOLIS Room #: 526B-B [facility] IN M.R.#: [id number] Admission: 08/16/21 Attend Phys: Michael Banda DO Discharge: 09/07/21 Date of : 51 Report #: [id number] THIS REPORT FOR: cc: MOMO - Family physician unknown FAM - Family physician unknown Michael Banda DO ~ DATE OF SERVICE: 09/07/2021 INPATIENT PSYCHIATRIC DISCHARGE SUMMARY ATTENDING PSYCHIATRIST: Michael Banda DO WOOD HEEL FINISHER: Eulogio Chong DO DISCHARGE DIAGNOSES: Major neurocognitive disorder at least moderately advanced degree with behavioral disturbance, improved. Other comorbidities include chronic obstructive pulmonary disease, stable on albuterol; hypertension; history of coronary artery disease; hypothyroidism; history of prior cerebrovascular accident. The patient is discharging to her daughter, Shannon's home in [place], [place]. The patient has a scheduled followup appointment at the [facility], has a primary care physician appointment on 09/12/2021 at 10:45 a.m. DISCHARGE MEDICATIONS: As follows: Antihistamine like loratadine and Zyrtec 10 mg oral daily; aspirin 81 mg oral daily for heart protection; Plavix 75 mg oral daily for heart and stroke protection; atorvastatin 20 mg oral daily for hyperlipidemia; doxazosin 2 mg oral twice daily for hypertension; Coreg 25 mg oral twice daily with meals for hypertension; Seroquel 50 mg 3 times a day at 0900, 1500 and 2100; chlorthalidone 25 mg oral daily for hypertension; levothyroxine 75 mcg oral daily for hypothyroidism. LABORATORY DATA: Significant laboratories this admission, hematology: White count 7.9, H and H 12.9 and 39.5, platelet count 174. Chemistry: Sodium 142, potassium 3.9, chloride 104, bicarbonate 27, anion gap 11, BUN 23, creatinine 0.9, estimated GFR 62, glucose 154, calcium 8.5, AST 47, ALT 55. NT-proBNP 1902. Troponin 32, total protein 7.4, albumin 3.3. Lipids within normal limits. TSH 1.656. Urinalysis was clean. Toxicology positive for marijuana, negative for alcohol. Salicylate and other substance abuse were negative. COVID-19 PCR was negative on August 29, and 09/06. REASON FOR ADMISSION: Back on 08/16, a 66-year-old female brought to [facility] due to being dropped at her daughter's house in a distressed state by her ex-. The patient is homeless. There had been a diagnosis of depression and possible dementia in 03/2021 at [facility]. HOSPITAL COURSE: The patient was admitted to Geriatric Psychiatry Unit. We did [facility] [address] [place] [address] DISCHARGE SUMMARY Name: MIRYAM SOLIS CLARISSA Room #: 526B-B DIS IN M.R.#: [id number] Admission: 08/16/21 Attend Phys: Michael Banda DO Discharge: 09/07/21 Date of : 51 Report #: [id number] a full workup including head CT, no reversible causes were found. There were extensive problems with getting the patient placed in nursing facility in [place]. She had a [facility] managed Medicaid. There was involvement of the [place] [employer]. Her daughter had initially made plans to take her home on 09/04. Right before the time of discharge, the daughter stated she was uncomfortable due to social security issue. We continued to work with her throughout the week. We set the discharge date of 09/07/2021 as the patient was quite stable, able to ambulate with walker, not suicidal or homicidal and she could stay at her daughter's. We followed through with discharge at 2:00 p.m. on 09/07. PHYSICAL EXAMINATION: VITAL SIGNS: On the day of discharge, temperature 36.5, pulse 80, respirations 18, BP 129/73, O2 sat 94%. GENERAL: Wearing glasses, seated. MENTAL STATUS EXAMINATION: Well-developed, age-appearing, disabled, female. Attention and concentration fair to limited. Speech, normal rate. Thought process, linear and goal directed. Focused on discharging to her daughter's. Denied SI, HI, auditory or visual type hallucinations. Some helplessness, no hopelessness. Memory not formally tested. Insight and judgment were limited. Fund of knowledge below average. Prognosis for this patient is guarded given her age of 66, limited support, having a neurodegenerative disorder. <ELECTRONICALLY SIGNED> By: Michael Banda DO 09/08/21 [id number] Michael Banda DO /nt
--- NOTE | 2021-09-11 08:15 | NUR ---
Phone message received from Radha Todd ([phone]) with [facility]. Return call made by the and a voice message was left.
== END 2021-09-07 13:15 | disposition home or self-care (01) | DRG 884 ==
LOC: SBH
PROVIDERS: Hospitalist; Internal Medicine; Pediatrics; ADMIT Psychiatry & Neurology Psychiatry; ATTEND Psychiatry & Neurology Psychiatry
DX: F01.51 Vascular dementia, unspecified severity, with behavioral disturbance (principal); J44.9 Chronic obstructive pulmonary disease, unspecified; B18.2 Chronic viral hepatitis C; Z88.0 Allergy status to penicillin; Z88.8 Allergy status to other drugs, medicaments and biological substances; Z91.040 Latex allergy status; I10 Essential (primary) hypertension; E03.9 Hypothyroidism, unspecified; I25.10 Atherosclerotic heart disease of native coronary artery without angina pectoris; Z86.73 Personal history of transient ischemic attack (TIA), and cerebral infarction without residual deficits; G89.4 Chronic pain syndrome; F31.9 Bipolar disorder, unspecified; I25.2 Old myocardial infarction; F41.9 Anxiety disorder, unspecified; E78.5 Hyperlipidemia, unspecified
CPT/HCPCS: 10880